=== PATIENT | female | born 1990 | race Caucasian/White ===

== ENCOUNTER → 2018-03-28 | Emergency (ER) | payer OTHER ==
[~2018-03-28] VITALS: Ht 157.5 cm; Wt 59.0 kg
[~2018-03-28] MED LIST: FOLIC ACID0.4 MG; KEPPRA500 MG PO; NEURONTIN300 MG PO; TOPIRAMATE100 MG PO
== END | disposition home or self-care (01) ==
LOC: ER 20:23
DX: G40.89 Other seizures (principal); G43.909 Migraine, unspecified, not intractable, without status migrainosus

== ENCOUNTER 2018-03-29 12:51 | Emergency (ER) | payer OTHER ==
[~2018-03-29] VITALS: Ht 157.5 cm; Wt 59.0 kg
[~2018-03-29 12:51] MED LIST changes: -KEPPRA500 MG PO; -NEURONTIN300 MG PO
[2018-03-29] MEDS ORDERED: KEPPRA500 MG PO (16:57)
[2018-03-29] MEDS ORDERED: NEURONTIN300 MG PO (16:57)
== END 2018-03-29 17:09 | disposition home or self-care (01) ==
LOC: ER 12:51
DX: G40.802 Other epilepsy, not intractable, without status epilepticus (principal)
CPT/HCPCS: 70552

== ENCOUNTER → 2018-12-08 | Emergency (ER) | payer OTHER ==
[~2018-12-08] VITALS: Ht 157.5 cm; Wt 59.0 kg
[~2018-12-08] MED LIST changes: +KEPPRA500 MG PO; +NEURONTIN300 MG PO
== END | disposition left against medical advice (07) ==
LOC: ER 03:19
DX: Z53.20 Procedure and treatment not carried out because of patient's decision for unspecified reasons (principal)